=== PATIENT | female | born 2000 | race Caucasian/White ===

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

== ENCOUNTER 2022-11-09 15:45 | Outpatient (CLI) | payer BC ==
[2022-11-09 18:11] VITALS: BP 114/66; PULSE 78; RESP 16; TEMP 98.1
--- NOTE | 2022-11-14 14:22 | P.MSEPDOC ---
Presenting Problems - Arrival Data Date of Arrival on Unit: 11/09/22 Time of Arrival on Unit: 15:45 Mode of Transport: Ambulatory - Complaint OB-Reason for Admission/Chief Complaint: Decreased Movement Medical History - Information : 1 Para: 0 Term: 0 : 0 Abortions: Spontaneous or Elective: 0 Number of Living Children: 0 - Gestational Age Gestational Age by SERGO (wks/days): 27 Weeks and 5 Days Review of Systems - Review of Systems Constitutional: No problems Breast: No problems ENT: No problems Cardiovascular: No problems Respiratory: No problems Gastrointestinal: No problems Genitourinary: No problems Musculoskeletal: No problems Neurological: No problems Skin: No problems Vital Signs - Temperature Temperature: 98.1 F Temperature Source: Temporal Artery Scan - Pulse Right Pulse Rate: 78 Pulse Assessment Method: Automatic Cuff - Respirations Respiratory Rate: 16 Oxygen Delivery Method: Room Air O2 Sat by Pulse Oximetry: 98 - Blood Pressure Right Arm Sitting Blood Pressure: 114/66 Blood Pressure Mean: 82 Blood Pressure Source: Automatic Cuff Medical Screen Scoring - Assessment - Baby A Baseline FHR: 125 Heart Rate - NICHD Category: Category I (Normal) NST: Reactive Physician Notification - Physician Notified Physician Notified Date: 11/09/22 Physician Notified Time: 16:26 Physician: Sydnee Jones New Order Received: Yes (dc home with instruction) Maternal Triage Index - Stat/Priority 1 Stat Priority 1: No - Urgent/Priority 2 Urgent Priority 2: Yes Provider Notified: Sydnee Jones Provider Notified Time: 16:26 Criteria Met for Priority 2: 27.5 decreased movment - Prompt/Priority 3 Prompt Priority 3: No - Non-Urgent/Priority 4 Non-Urgent Priority 4: No Disposition - Disposition OB Disposition: Triage, Discharge to home, Written follow up instructions reviewed Discharge Date: 11/09/22 Discharge Time: 16:30 I agree with the RN Medical Screening Exam: Yes Physician's MSE Comment: I have neither seen nor examined the patient Case reviewed; plan agreed upon as documented in EMR&OBIX.: Yes Diagnosis: RELATED CONDITIONS, UNSPECIFIED, SECOND TRIMESTER
== END 2022-11-09 16:30 | disposition home or self-care (01) ==
LOC: FBPOP 15:45
PROVIDERS: ATTEND Obstetrics & Gynecology
DX: O36.8121 Decreased fetal movements, second trimester, fetus 1 (principal); Z3A.27 27 weeks gestation of pregnancy
CPT/HCPCS: 99213

== ENCOUNTER 2023-01-23 16:30 | Outpatient (CLI) | payer BC, OTHER ==
[2023-01-23 17:15] LABS: Basophils % (A) 0 %; Eosinophils # (A) 0.1 k/uL (0-0.7); Eosinophils % (A) 1 %; HCT 34.1 % (34.0-46.0); HGB 11.3 gm/dL (11.4-16.0); Hypochromasia Slight; Lymphocytes # (A) 1.6 k/uL (1.0-4.8); Lymphocytes % (A) 16 %; MCH 28.4 pg (25.0-35.0); MCHC 33.1 g/dL (31.0-37.0); MCV 85.7 fL (80.0-100.0); Mean Platelet Volume 10.1; Monocytes # (A) 0.4 k/uL (0-1.0); Monocytes % (A) 4 %; Neutrophils # (A) 7.7 k/uL (1.3-7.7); Neutrophils % (A) 77 %; Platelet Count 242 k/uL (150-450); RBC 3.98 m/uL (3.80-5.40); RDW 13.6 % (11.5-15.5)
[2023-01-23 17:31] LABS: Appearance,Urine Cloudy (Clear); Bilirubin,Urine Negative (Negative); Blood,Urine Negative (Negative); Color,Urine Yellow; Glucose,Urine (UA) Negative (Negative); Ketones,Urine Negative (Negative); Leukocyte Esterase,Urine Small (Negative); Nitrite,Urine Negative (Negative); Protein,Urine Trace (Negative); Specific Gravity,Urine 1.015 (1.001-1.035); Urobilinogen,Urine <2.0 mg/dL (<2.0)
[2023-01-23 17:35] LABS: ALT 15 U/L (4-34); AST 21 U/L (14-36); African American GFR (CKD) >90 (>60 ml/min/1.73 sqM); Blood Urea Nitrogen 9 mg/dL (7-17); Non-African American GFR(CKD) >90 (>60 ml/min/1.73 sqM); Uric Acid 6.7 mg/dL (3.7-7.4)
[2023-01-23 17:51] LABS: Bacteria,Urine Moderate /hpf; Squamous Epithelial Cell,Urine 7 /hpf (0-4); Transitional Epi Cells,Urine 2 /hpf (0-1); WBC,Urine 5 /hpf (0-5)
[2023-01-23 18:07] LABS: Creatinine,Urine Random 107.3 mg/dL; Protein/Creatinine Ratio,Urine 0.103
[2023-01-23 18:35] VITALS: BP 114/67; PULSE 82; RESP 16; TEMP 97.7
== END 2023-01-23 18:20 | disposition home or self-care (01) ==
LOC: FBPOP 16:30
PROVIDERS: ATTEND Obstetrics & Gynecology
DX: R03.0 Elevated blood-pressure reading, without diagnosis of hypertension (principal); O13.3 Gestational [pregnancy-induced] hypertension without significant proteinuria, third trimester
CPT/HCPCS: 36415; 59025; 81001; 82565; 82570; 84156; 84450; 84460; 84520; 84550; 85025

== ENCOUNTER 2023-01-25 20:45 | Inpatient (IN) | payer BC, OTHER ==
[2023-01-25] MEDS: LACTATED RINGERS 1,000 ML IV SCH (21:10)
[2023-01-25] MEDS ORDERED: miSOPROStoL 200 MCG TAB PO PRN (21:11)
[2023-01-25] MEDS ORDERED: TRANEXAMIC 1,000 MG/100ML-NACL 1,000 MG in EMPTY BAG 1 BAG IV PRN (21:11)
[2023-01-25] MEDS ORDERED: METHYLERGONOVINE 0.2 MG/ML 1 ML AMP IM PRN (21:11)
[2023-01-25] MEDS ORDERED: LIDOCAINE 0.5% (PF) 5 MG/ML (50 ML SDV) SQ PRN (21:11)
[2023-01-25] MEDS ORDERED: TERBUTALINE 1 MG/ML VIAL SQ PRN (21:11)
[2023-01-25] MEDS ORDERED: CARBOPROST TROMETHAMINE 250 MCG/ML 1 ML AMP IM PRN (21:11)
[2023-01-25] MEDS ORDERED: OXYTOCIN 10 UNIT/ML 1 ML VIAL IM PRN (21:11)
[2023-01-25] MEDS ORDERED: NALBUPHINE 10 MG/ML (10 ML MDV) IV PRN (21:13)
[2023-01-25 22:22] LABS: Basophils % (A) 0 %; Eosinophils # (A) 0.1 k/uL (0-0.7); Eosinophils % (A) 1 %; HCT 34.1 % (34.0-46.0); HGB 11.4 gm/dL (11.4-16.0); Lymphocytes # (A) 2.1 k/uL (1.0-4.8); Lymphocytes % (A) 19 %; MCH 28.1 pg (25.0-35.0); MCHC 33.4 g/dL (31.0-37.0); MCV 84.2 fL (80.0-100.0); Mean Platelet Volume 10.3; Monocytes # (A) 0.6 k/uL (0-1.0); Monocytes % (A) 6 %; Neutrophils % (A) 73 %; Platelet Count 259 k/uL (150-450); RBC 4.05 m/uL (3.80-5.40); RDW 13.4 % (11.5-15.5)
--- NOTE | 2023-01-25 22:55 | US ---
EXAM: US , Limited CLINICAL HISTORY: US Reason: position TECHNIQUE: Real-time limited ultrasound of the maternal uterus with image documentation. COMPARISON: No relevant prior studies available. FINDINGS: Fetus: There is a single intrauterine fetus in a vertex orientation. IMPRESSION: There is a single intrauterine fetus in a vertex orientation.
[2023-01-26] MEDS ORDERED: ROPIVACAINE 5 MG/ML 20 ML AMPULE ONE (01:55)
[2023-01-26] MEDS ORDERED: SODIUM CHLORIDE 0.9% 100 ML BAG ONE (01:55)
[2023-01-26] MEDS ORDERED: fentaNYL (PF) 50 MCG/ML 5 ML AMP ONE (01:55)
[2023-01-26] MEDS: LACTATED RINGERS 1,000 ML IV SCH ×5 (05:14→22:36)
[2023-01-26] MEDS: OXYTOCIN 30 UNITS/500 ML NS 30 UNIT in SALINE 1 500ML.BAG IV SCH ×2 (06:07→13:26)
--- NOTE | 2023-01-26 10:00 | P.HPOB ---
History of Present Illness H&P Date: 01/26/23 Chief Complaint: IUP at 38-5/7 weeks, spontaneous rupture of membranes. This is a 22-year-old 1 para 0 at 38-5/7 weeks, estimated due date of 02/03. Patient has been receiving routine care which has been uncomplicated by polyhydramnios. Patient has a history of anxiety and depression and has been on Zoloft. In addition patient has a history of borderline personality disorder is seen [facility]. Patient noted spontaneous rupture of membranes at 1900, clear in nature. Patient made slow progress through the night therefore Pitocin augmentation of labor was begun around 6 AM. On bloodwork this patient is a blood type of A+, rubella status immune, B surface antigen negative, HIV negative, RPR is nonreactive, group beta strep cultures negative. Review of Systems Constitutional: Denies chills, Denies fatigue, Denies fever Ears, nose, mouth and throat: Denies headache Cardiovascular: Reports leg edema Respiratory: Denies dyspnea Gastrointestinal: Denies constipation, Denies diarrhea, Denies nausea, Denies vomiting Genitourinary: Reports Past Medical History Past Medical History: No Reported History History of Any Multi-Drug Resistant Organisms: None Reported Past Surgical History: No Surgical Hx Reported Past Anesthesia/Blood Transfusion Reactions: No Reported Reaction Past Psychological History: ADD/ADHD, Anxiety, Bipolar, Depression Smoking Status: Never smoker Past Alcohol Use History: None Reported Past Drug Use History: None Reported Medications and Allergies Home Medications Medication Instructions Recorded Confirmed Type Sertraline [Zoloft] 50 mg PO DAILY 01/23/23 01/25/23 History Allergies Allergy/AdvReac Type Severity Reaction Status Date / Time No Known Allergies Allergy Verified 01/23/23 16:37 Exam Osteopathic Statement: *. No significant issues noted on an osteopathic structural exam other than those noted in the History and Physical/Consult. Vital Signs Temp Pulse Resp BP Pulse Ox 01/25/23 21:11 97.2 F L 86 16 130/90 100 01/25/23 20:58 97.2 F L 86 16 130/90 100 Intake and Output 01/25/23 01/26/23 01/26/23 22:59 06:59 14:59 Intake Total 240 Output Total 500 Balance 240 -500 Intake: Oral 240 Output: Urine 500 Other: # Voids 1 Weight 82.1 kg Targeted physical exam is performed and state in general this a well-nourished well-developed female in no acute distress, breathing is nonlabored, she is very comfortable with her epidural. Abdomen is gravid. On cervical exam per RN she is completely dilated and -1 station. heart tones returned be category 1 with an occasional variable moderate variability. She is melba every 4 minutes. Results Result Diagrams: 01/25/23 21:30 Abnormal Lab Results - Last 24 Hours (Table) 01/25/23 Range/Units 21:30 Neutrophils # 8.0 H (1.3-7.7) k/uL Assessment and Plan (1) Term Current Visit: Yes Status: Acute Code(s): Z34.90 - ENCNTR FOR SUPRVSN OF NORMAL , UNSP, UNSP TRIMESTER SNOMED Code(s): 29115107 (2) SROM (spontaneous rupture of membranes) Current Visit: Yes Status: Acute Code(s): HBD6521 - SNOMED Code(s): 169 997551 (3) Cluster B personality disorder Current Visit: No Status: Acute Priority: High Code(s): F60.89 - OTHER SPECIFIC PERSONALITY DISORDERS SNOMED Code(s): 2060258 Plan: 22-year-old 1 para 0 at 38-5/7 weeks presented to labor and delivery with complaints of spontaneous rupture of membranes. Patient is making good progress, Pitocin augmentation of labor was begun around 6 AM. Anticipate spontaneous vaginal delivery.
[2023-01-26] MEDS ORDERED: TRANEXAMIC 1,000 MG/100ML-NACL 1,000 MG in EMPTY BAG 1 BAG IV PRN (11:47)
[2023-01-26] MEDS ORDERED: METHYLERGONOVINE 0.2 MG/ML 1 ML AMP IM PRN (11:47)
[2023-01-26] MEDS ORDERED: OXYTOCIN 10 UNIT/ML 1 ML VIAL IM PRN (11:47)
[2023-01-26] MEDS ORDERED: CARBOPROST TROMETHAMINE 250 MCG/ML 1 ML AMP IM PRN (11:47)
[2023-01-26] MEDS ORDERED: miSOPROStoL 200 MCG TAB PO PRN (11:47)
[2023-01-26] MEDS ORDERED: CITRIC ACID-SODIUM CITRATE 15 ML CUP PO ONE (11:47)
[2023-01-26] MEDS ORDERED: MORPHINE SULFATE (PF) 0.3 MG/0.3 ML SYR ONE (12:07)
[2023-01-26] MEDS ORDERED: fentaNYL (PF) 50 MCG/ML 2 ML AMP ONE (12:07)
[2023-01-26] MEDS ORDERED: ONDANSETRON 4 MG/2 ML VIAL ONE (12:07)
[2023-01-26] MEDS ORDERED: OXYTOCIN 30 UNITS/500 ML NS BAG IV ONE (12:07)
[2023-01-26] MEDS ORDERED: SUCCINYLCHOLINE CHLORIDE 200 MG/10 ML VIAL IV ONE (12:07)
[2023-01-26] MEDS ORDERED: PROPOFOL 10 MG/ML 20 ML VIAL IV ONE (12:07)
[2023-01-26] MEDS ORDERED: DEXAMETHASONE SOD PHOSPHATE 4 MG/ML 1 ML VIAL ONE (12:07)
[2023-01-26] MEDS ORDERED: diphenhydrAMINE 25 MG CAP PO PRN (12:57)
[2023-01-26] MEDS ORDERED: ONDANSETRON 4 MG/2 ML VIAL IVP PRN (12:57)
[2023-01-26] MEDS ORDERED: ZOLPIDEM 5 MG TAB PO PRN (12:57)
[2023-01-26] MEDS ORDERED: SIMETHICONE 80 MG CHEWABLE PO PRN (12:57)
[2023-01-26] MEDS ORDERED: NALOXONE 0.4 MG/ML 1 ML VIAL IV PRN (12:57)
[2023-01-26] MEDS ORDERED: diphenhydrAMINE 50 MG/ML 1 ML VIAL IVP PRN ×2 (12:57)
[2023-01-26] MEDS ORDERED: diphenhydrAMINE 50 MG CAP PO PRN (12:57)
[2023-01-26] MEDS ORDERED: METOCLOPRAMIDE 5 MG/ML 2 ML VIAL IVP PRN (12:57)
[2023-01-26] MEDS ORDERED: HYDROmorphone 0.5 MG/0.5 ML SYRINGE IVP PRN (12:57)
--- NOTE | 2023-01-26 12:57 | P.OP ---
Date of Procedure: 01/26/23 Preoperative Diagnosis: IUP at 38 and 5, spontaneous rupture of membranes, arrest of descent, maternal refusal to push Postoperative Diagnosis: Same plus occiput posterior presentation Procedure(s) Performed: Primary low transverse section Anesthesia: GETA, other (failed pain control with epidural) Surgeon: Francheska Maldonado Fingerprint Clerk #1: Toni Greer Estimated Blood Loss (ml): 222 IV fluids (ml): 1,200 Urine output (ml): 250 Pathology: none sent Condition: stable Disposition: observation Indications for Procedure: 22-year-old 1 para 0 at 38-5/7 weeks that presented to [facility] and [facility] with complaints of spontaneous rupture of membranes. Patient was admitted to labor and delivery and Pitocin augmentation of labor was begun early this a.m. Patient desired epidural which was placed by the anesthesia Department without difficulty. Patient made good progress toward complete. Patient was noted to be very numb with epidural and unable to push. Patient was allowed to "labor down" for approximately 1 hour. Epidural was then discontinued after multiple attempts of trying to push, mom refused any further pushing stating "she is to painful to push" heart tones were noted to be category 2 with variable decelerations noted with contractions. Discussed with the patient heart tones, refusal to push and the need to proceed with primary C- section. Patient and mom states understanding anesthesia is notified. Operative Findings: Arcuate uterus, normal ovaries bilaterally. Viable female delivered weight of 7 lbs. 0 oz., Apgars of 9 and 9 at one and 5 minutes respectively. Description of Procedure: The patient was prepped and draped in the usual fashion. Epidural had been dosed, after testing for pain control the patient was noting significant discomfort therefore general anesthesia was obtained without difficulty by the anesthesia department. A Pfannenstiel incision was made and extended of the abdominal cavity without difficulty. The bladder peritoneum was elevated and incised and reflected distally. A 2 cm incision was made in the transverse plane of the lower uterine segment to enter the uterus at which time clear fluid was noted. The incision was extended in both directions bluntly. The head was encountered within the field and delivered up and through the incision where the nose and mouth were thoroughly suctioned. Occiput posterior presentation was noted. Remainder of the infant was delivered onto the surgical field where the cord was doubly clamped, cut, and the infant was passed for resuscitative measures with weight and Apgars as noted above. The placenta was delivered manually, intact, and was grossly normal with a grossly normal three-vessel cord. The uterus was exteriorized and the interior cavity of the uterus swept of any remaining placental and membranous fragments with a laparotomy sponge. The margins of the incision were grasped with Allis clamps and the incision closed in 2 layers. First layer was a running locking layer of 0 chromic catgut from margin to margin followed by a second layer of imbricating 0 Allis from margin to margin. Any small points of bleeding were then made hemostatic with the Bovie. Once hemostasis was achieved, the posterior cul-de-sac was suctioned with a guard and the uterine and ovarian findings are as noted above. The uterus was replaced within the abdominal cavity and the gutters swept of any remaining blood fluid or clot. The incision was again reexamined and hemostasis was noted to be excellent. Any small point of bleeding were made hemostatic with the Bovie. Once hemostasis was achieved the parietal peritoneum was loosely reapproximated. The layer of muscles were examined and made hemostatic with the Bovie. Attention was then turned to the fascia which was closed with 2 running stitches of 0 Vicryl proceeding from the lateral margins to the midpoint. The subcutaneous tissues were irrigated, made hemostatic with the Bovie, and reapproximated with a running stitch of 30 Vicryl. The skin was reapproximated with 4-0 Monocryl. Estimated blood loss for the case was approximately 222 mL. All sponge instrument and needle counts are correct. There were no complications. The patient tolerated the procedure well and proceeded to the recovery room in stable condition. Both mother and infant are resting comfortably in recovery.
[2023-01-26] MEDS ORDERED: OXYTOCIN 30 UNITS/500 ML NS 30 UNIT in SALINE 1 500ML.BAG IV SCH (13:00)
[2023-01-26] MEDS: ACETAMINOPHEN IV (For NPO) 1,000 MG in EMPTY BAG 1 BAG IVPB SCH ×2 (14:02→22:36)
[2023-01-26] MEDS: IBUPROFEN IV 800 MG in SODIUM CHLORIDE 0.9% 250 ML IV SCH ×2 (14:12→20:06)
[2023-01-26 17:08] VITALS: RESP 16
[2023-01-26] MEDS: ACETAMINOPHEN TAB 500 MG TAB PO SCH ×2 (17:29→22:34)
[2023-01-26] MEDS: IBUPROFEN 600 MG TAB PO SCH (19:45)
[2023-01-26] MEDS: SENNOSIDES-DOCUSATE SODIUM 1 EACH TAB PO SCH (20:06)
[2023-01-27] MEDS: IBUPROFEN 600 MG TAB PO SCH ×5 (01:53→22:28)
[2023-01-27] MEDS: IBUPROFEN IV 800 MG in SODIUM CHLORIDE 0.9% 250 ML IV SCH (03:49)
[2023-01-27] MEDS: LACTATED RINGERS 1,000 ML IV SCH ×3 (06:49→13:49)
[2023-01-27 07:27] LABS: Basophils % (A) 0 %; Eosinophils # (A) 0.1 k/uL (0-0.7); Eosinophils % (A) 0 %; HCT 29.2 % (34.0-46.0); Hypochromasia Slight; Lymphocytes # (A) 1.6 k/uL (1.0-4.8); Lymphocytes % (A) 11 %; MCH 27.5 pg (25.0-35.0); MCHC 32.3 g/dL (31.0-37.0); MCV 85.3 fL (80.0-100.0); Mean Platelet Volume 9.9; Monocytes % (A) 7 %; Neutrophils # (A) 11.7 k/uL (1.3-7.7); Neutrophils % (A) 80 %; Platelet Count 230 k/uL (150-450); RBC 3.42 m/uL (3.80-5.40); RDW 13.5 % (11.5-15.5); WBC 14.6 k/uL (4.0-11.0)
[2023-01-27 07:32] LABS: HGB 9.4 gm/dL (11.4-16.0)
[2023-01-27] MEDS: ACETAMINOPHEN TAB 500 MG TAB PO SCH ×4 (07:52→19:03)
[2023-01-27] MEDS: SENNOSIDES-DOCUSATE SODIUM 1 EACH TAB PO SCH ×2 (07:52→20:17)
[2023-01-27] MEDS: SERTRALINE 50 MG TAB PO SCH (09:39)
--- NOTE | 2023-01-27 09:47 | P.PNOBGPC ---
Subjective - Subjective Principal diagnosis: Postop day 1, primary Interval history: Patient continues to have pain postoperatively. She has voided spontaneously 1 and a bedpan. She has started by the bedside. Patient is receiving Motrin and Tylenol for pain. She is breast-feeding. She is tolerating clear liquids without nausea or vomiting, she declined regular diet this morning with her breakfast tray. lochia moderate Patient reports: Reports voiding normally, Reports pain poorly controlled, Reports ambulating normally [place]: doing well Objective - Vital Signs Latest vital signs: Vital Signs Temp Pulse Pulse Resp BP Pulse Ox 01/27/23 07:58 97.9 F 66 16 118/78 98 01/27/23 04:00 97.3 F L 67 16 116/77 01/27/23 00:40 97.9 F 74 16 113/65 95 01/26/23 20:20 98.2 F 70 16 128/79 96 01/26/23 16:00 99 F 71 16 141/80 97 01/26/23 15:00 99.2 F 77 16 139/82 96 01/26/23 14:30 64 16 135/82 96 01/26/23 14:00 66 16 138/79 96 01/26/23 13:45 70 144/83 97 01/26/23 13:30 65 16 140/83 96 01/26/23 13:15 71 14 132/76 96 01/26/23 13:00 96.9 F L 99 14 146/87 95 Intake and Output 01/26/23 01/27/23 01/27/23 22:59 06:59 14:59 Intake Total 300 Output Total 1817 600 Balance -1816 -300 Intake: Oral 300 Output: Urine 1775 600 Uretheral ([place]) 750 600 Output, Quantitative 42 Blood Loss Other: # Voids 0 - Exam Extremities: Present: normal, edema Abdomen: Present: normal appearance, soft Incision: Present: normal, dry, intact Uterus: Present: normal, firm - Labs Labs: Abnormal Lab Results - Last 24 Hours (Table) 01/27/23 Range/Units 06:07 WBC 14.6 H (4.0-11.0) k/uL RBC 3.42 L (3.80-5.40) m/uL Hgb 9.4 L D (11.4-16.0) gm/dL Hct 29.2 L (34.0-46.0) % Neutrophils # 11.7 H (1.3-7.7) k/uL Assessment and Plan (1) Term Current Visit: Yes Status: Acute Code(s): Z34.90 - ENCNTR FOR SUPRVSN OF NORMAL , UNSP, UNSP TRIMESTER SNOMED Code(s): 39342574 (2) SROM (spontaneous rupture of membranes) Current Visit: Yes Status: Acute Code(s): DYY0751 - SNOMED Code(s): 087819724 (3) Cluster B personality disorder Current Visit: No Status: Acute Priority: High Code(s): F60.89 - OTHER SPECIFIC PERSONALITY DISORDERS SNOMED Code(s): 1781462 (4) Arrest of descent, delivered, current hospitalization Narrative/Plan: Secondary to maternal refusal to push Current Visit: Yes Status: Acute Code(s): O62.1 - SECONDARY UTERINE INERTIA SNOMED Code(s): 21353095 (5) S/P section Current Visit: Yes Status: Acute Code(s): Z98.891 - HISTORY OF UTERINE SCAR FROM PREVIOUS SURGERY SNOMED Code(s): 095975665 (6) Occiput posterior presentation of fetus Current Visit: Yes Status: Acute Code(s): O64.0XX0 - OBSTRUCTED LABOR DUE TO INCMPL ROTATION OF HEAD, UNSP SNOMED Code(s): 28176771 Plan: 22-year-old 1 now para 1 status post primary for arrest of descent secondary to maternal refusal to push. Patient is overall doing well postoperatively. She states she is unable to ambulate significantly due to p ain. Patient has Dilaudid and Oxy IR ordered for pain. She has been offered both. She has been taking Tylenol and Motrin per her request. Discussed ambulation, she states she will try. Plan to continue routine postoperative care.
[2023-01-28] MEDS: ACETAMINOPHEN TAB 500 MG TAB PO SCH ×3 (00:32→12:15)
[2023-01-28] MEDS: IBUPROFEN 600 MG TAB PO SCH ×2 (03:58→09:32)
--- NOTE | 2023-01-28 07:22 | P.DS ---
Providers Date of admission: 01/25/23 21:02 Expected date of discharge: 01/28/23 Attending physician: Sydnee Jones MD Primary care physician: Stated None - Discharge Diagnosis(es) (1) Term Current Visit: Yes Status: Acute (2) SROM (spontaneous rupture of membranes) Current Visit: Yes Status: Acute (3) Cluster B personality disorder Current Visit: No Status: Acute Priority: High (4) Arrest of descent, delivered, current hospitalization Current Visit: Yes Status: Acute (5) S/P section Current Visit: Yes Status: Acute (6) Occiput posterior presentation of fetus Current Visit: Yes Status: Acute Hospital Course: This is a 22-year-old 1 now para 1 that presented to labor and delivery on 01/25 with complaints of spontaneous rupture of membranes. Patient had been receiving routine care. For full details on this patient please see the dictated history and physical. Patient was admitted to labor and delivery. Pitocin augmentation of labor was begun in the morning due to irregular contractions. Patient did receive an epidural during labor, per patient request. Patient did progress to complete. At that time patient began pushing irregularly. Patient initially was not feeling any pressure to push therefore was allowed to labor down for approximately 1 hour. Patient then refused to push secondary to discomfort. Patient was then counseled on after multiple attempts to encourage pushing and refusal. Patient elected primary C- section. Patient was taken back to the operative suite where primary low transverse section was completed without difficulty. Patient delivered a 5 viable female at 1221, weight of 7 lbs. 0 oz., Apgars of 9 and 9 at one and 5 minutes respectively. Patient's postoperative course has been essentially uneventful. On this postoperative day #2 she is ambulating and voiding without difficulty. She states her pain is well-controlled. She is tolerating regular diet without nausea or vomiting. She denies concerns and wishes discharge home. Patient Condition at Discharge: Good Plan - Discharge Summary New Discharge Prescriptions: No Action Sertraline [Zoloft] 50 mg PO DAILY Discharge Medication List Sertraline [Zoloft] 50 mg PO DAILY 01/23/23 [History] Follow up Appointment(s)/Referral(s): Sydnee Jones MD [STAFF PHYSICIAN] - 2 Weeks Patient Instructions/Handouts: (DC), (GEN) Activity/Diet/Wound Care/Special Instructions: No tub baths or intercourse until 6 weeks . Patient is counseled on postoperative care. Patient is to call the office and make a routine postoperative appointment in 2 weeks. Patient is counseled that she has any concerns prior to this appointment she is urged to call the office. Discharge Disposition: HOME SELF-CARE
[2023-01-28 08:32] VITALS: BP 118/75; PULSE 86; TEMP 98.6
[2023-01-28] MEDS: SERTRALINE 50 MG TAB PO SCH (09:32)
[2023-01-28] MEDS: SENNOSIDES-DOCUSATE SODIUM 1 EACH TAB PO SCH (09:32)
== END 2023-01-28 12:35 | disposition home or self-care (01) | DRG 788 ==
LOC: FBPOP 20:45 → 4FBP 21:02
PROVIDERS: ADMIT Obstetrics & Gynecology; ATTEND Obstetrics & Gynecology
PROC: 10D00Z1 Extraction of Products of Conception, Low, Open Approach (ICD-10-PCS; principal; 2023-01-26 12:18)
DX: O40.3XX0 Polyhydramnios, third trimester, not applicable or unspecified (principal); G89.18 Other acute postprocedural pain; O62.1 Secondary uterine inertia; O32.8XX0 Maternal care for other malpresentation of fetus, not applicable or unspecified; O76 Abnormality in fetal heart rate and rhythm complicating labor and delivery; O34.03 Maternal care for unspecified congenital malformation of uterus, third trimester; Q51.810 Arcuate uterus; O99.344 Other mental disorders complicating childbirth; F41.9 Anxiety disorder, unspecified; F90.9 Attention-deficit hyperactivity disorder, unspecified type; F31.9 Bipolar disorder, unspecified; F60.89 Other specific personality disorders; Z79.899 Other long term (current) drug therapy; Z28.310 Unvaccinated for COVID-19; Z3A.38 38 weeks gestation of pregnancy; Z37.0 Single live birth
CPT/HCPCS: 59025; 76815; 84112; 85025; 86850; 86900; 86901; 99213

== ENCOUNTER 2023-01-30 01:20 | Emergency (ER) | payer BC, OTHER ==
[2023-01-30 01:28] VITALS: RESP 16; TEMP 98.2
[2023-01-30] MEDS ORDERED: ACETAMINOPHEN TAB 325 MG TAB PO STA (01:49)
[2023-01-30] MEDS ORDERED: IBUPROFEN 400 MG TAB PO STA (01:49)
[2023-01-30 02:36] LABS: ALT 17 U/L (4-34); AST 22 U/L (14-36); African American GFR (CKD) >90 (>60 ml/min/1.73 sqM); Albumin 2.9 g/dL (3.5-5.0); Alkaline Phosphatase 133 U/L (38-126); Anion Gap 9 mmol/L; Blood Urea Nitrogen 8 mg/dL (7-17); Calcium 8.4 mg/dL (8.4-10.2); Carbon Dioxide 20 mmol/L (22-30); Chloride 106 mmol/L (98-107); Glucose 113 mg/dL (74-99); LDH 210 U/L (120-246); Non-African American GFR(CKD) >90 (>60 ml/min/1.73 sqM); Potassium 3.5 mmol/L (3.5-5.1); Sodium 135 mmol/L (137-145); Total Bilirubin 0.5 mg/dL (0.2-1.3); Total Protein 5.6 g/dL (6.3-8.2); Uric Acid 5.6 mg/dL (3.7-7.4)
[2023-01-30 02:45] LABS: Appearance,Urine Slightly Cloudy (Clear); Bilirubin,Urine Negative (Negative); Blood,Urine Large (Negative); Color,Urine Light Yellow; Glucose,Urine (UA) Negative (Negative); Ketones,Urine Negative (Negative); Leukocyte Esterase,Urine Large (Negative); Nitrite,Urine Negative (Negative); Protein,Urine 1+ (Negative); Specific Gravity,Urine 1.009 (1.001-1.035); Urobilinogen,Urine <2.0 mg/dL (<2.0)
[2023-01-30 02:55] LABS: Basophils % (A) 0 %; Eosinophils # (A) 0.3 k/uL (0-0.7); Eosinophils % (A) 2 %; HCT 28.3 % (34.0-46.0); HGB 9.6 gm/dL (11.4-16.0); Lymphocytes # (A) 1.4 k/uL (1.0-4.8); Lymphocytes % (A) 8 %; MCH 28.3 pg (25.0-35.0); MCV 83.3 fL (80.0-100.0); Mean Platelet Volume 8.1; Monocytes # (A) 0.9 k/uL (0-1.0); Monocytes % (A) 5 %; Neutrophils # (A) 14.1 k/uL (1.3-7.7); Neutrophils % (A) 84 %; Platelet Count 297 k/uL (150-450); RBC 3.39 m/uL (3.80-5.40); RDW 13.9 % (11.5-15.5); WBC 16.9 k/uL (4.0-11.0)
[2023-01-30 02:56] LABS: Bacteria,Urine Few /hpf; RBC,Urine 31 /hpf (0-5); Squamous Epithelial Cell,Urine 6 /hpf (0-4); WBC,Urine 49 /hpf (0-5)
[2023-01-30 02:57] LABS: Magnesium 1.7 mg/dL (1.6-2.3); Phosphorus 3.8 mg/dL (2.5-4.5)
--- NOTE | 2023-01-30 03:23 | ED ---
General Adult HPI - General Chief complaint: Recheck/Abnormal Lab/Rx Stated complaint: Sore all over Time Seen by Provider: 01/30/23 01:40 Source: patient Mode of arrival: ambulatory Limitations: no limitations - History of Present Illness Initial comments: 22-year-old female presenting with chief complaint of body aches and chills. Symptoms started yesterday. Patient had a performed on 01/26. Her SECURITY RISK ANALYST is Dr. Sutton. She states that her postoperative pain has been improving. She denies any redness or discharge from her incision. She is having regular vaginal bleeding post delivery, and has had no increase in bleeding or purulent discharge. No fevers. No nausea, vomiting, diarrhea. No chest pain or difficulty breathing. No URI like symptoms. No dysuria. - Related Data Home Medications Medication Instructions Recorded Confirmed Sertraline [Zoloft] 50 mg PO DAILY 01/23/23 01/25/23 Allergies Allergy/AdvReac Type Severity Reaction Status Date / Time No Known Allergies Allergy Verified 01/23/23 16:37 Review of Systems ROS Statement: Those systems with pertinent positive or pertinent negative responses have been documented in the HPI. ROS Other: All systems not noted in ROS Statement are negative. Past Medical History Past Medical History: No Reported History History of Any Multi-Drug Resistant Organisms: None Reported Past Surgical History: No Surgical Hx Reported Additional Past Surgical History / Comment(s): CSection 01/27/2023 Past Anesthesia/Blood Transfusion Reactions: No Reported Reaction Past Psychological History: ADD/ADHD, Anxiety, Depression Smoking Status: Never smoker Past Alcohol Use History: None Reported Past Drug Use History: None Reported General Exam Limitations: no limitations General appearance: alert, in no apparent distress Head exam: Present: atraumatic, normocephalic, normal inspection Eye exam: Present: normal appearance, EOMI ENT exam: Present: normal exam, normal oropharynx, mucous membranes moist Neck exam: Present: normal inspection, full ROM Respiratory exam: Present: normal lung sounds bilaterally. Absent: respiratory distress, wheezes, rales, rhonchi, stridor Cardiovascular Exam: Present: regular rate, normal rhythm, normal heart sounds. Absent: systolic murmur, diastolic murmur, rubs, gallop, clicks GI/Abdominal exam: Present: soft, tenderness (Lower abdominal tenderness that correlates with recent surgery, pain is not out of proportion to pressure applied). Absent: distended, guarding, rebound, rigid Extremities exam: Present: normal inspection Neurological exam: Present: alert, oriented X3, CN II-XII intact Psychiatric exam: Present: normal affect, normal mood Skin exam: Present: warm, dry, intact, normal color. Absent: rash Course Vital Signs 01/30/23 01/30/23 01/30/23 01:22 02:20 03:32 Temperature 98.2 F Pulse Rate 87 73 Respiratory 16 Rate Blood Pressure 154/93 131/84 128/80 O2 Sat by Pulse 98 Oximetry Medical Decision Making - Medical Decision Making Was pt. sent in by a medical professional or institution (, PA, ASSOCIATE PATHOLOGIST, urgent care, hospital, or fdc...) When possible be specific @ -No Did you speak to anyone other than the patient for history (EMS, parent, family, police, friend...)? What history was obtained from this source @ -No Did you review nursing and triage notes (agree or disagree)? Why? @ -I reviewed and agree with nursing and triage notes Were old charts reviewed (outside hosp., previous admission, EMS record, old EKG, old radiological studies, urgent care reports/EKG's, fdc records)? Report findings @ -No old charts were reviewed Differential Diagnosis (chest pain, altered mental status, abdominal pain women, abdominal pain men, vaginal bleeding, weakness, fever, dyspnea, syncope, headache, dizziness, GI bleed, back pain, seizure, CVA, palpatations, mental health, musculoskeletal)? @ -Differential includes endometritis, viral infection, mononucleosis, group A strep, thiis is not an all-inclusive list EKG interpreted by me (3pts min.). @ -As above X-rays interpreted by me (1pt min.). @ -None done CT interpreted by me (1pt min.). @ -None done U/S interpreted by me (1pt. min.). @ -None done What testing was considered but not performed or refused? (CT, X-rays, U/S, l abs)? Why? @ -Swabs for Covid, influenza, RSV, group A strep are ordered, however the patient refuses What meds were considered but not given or refused? Why? @ -None Did you discuss the management of the patient with other professionals (professionals i.e. , PA, ASSOCIATE PATHOLOGIST, lab, RT, psych nurse, social psychologist, public transportation inspector, teacher, equal opportunity officer, supervisor case loading)? Give summary @ -My attending spoke with Dr. Sutton regarding the patient's initial elevated blood pressure reading Was smoking cessation discussed for >3mins.? @ -No Was critical care preformed (if so, how long)? @ -No Were there social determinants of health that impacted care today? How? (Homelessness, low income, unemployed, alcoholism, drug addiction, transportation, low edu. Level, literacy, decrease access to med. care, snf, rehab)? @ -No Was there de-escalation of care discussed even if they declined (Discuss DNR or withdrawal of care, Hospice)? DNR status @ -No What co-morbidities impacted this encounter? (DM, HTN, Smoking, COPD, CAD, Cancer, CVA, ARF, Chemo, Hep., AIDS, mental health diagnosis, sleep apnea, morbid obesity)? @ -None Was patient admitted / discharged? Hospital course, mention meds given and route, prescriptions, significant lab abnormalities, going to OR and other pertinent info. @ -22-year-old female presenting with chief complaint of body aches and chills ongoing for the last day. Patient recently had a on 01/26, she denies any increasing pain, fevers, purulent discharge. Physical examination is conducted. Lab work shows WBC 16.9, patient had a previously elevated white count on 01/27. Hemoglobin of 9.6 stable from most recent value. Urine shows signs of contamination and will be sent for culture. Negative heterophile. Patient refused testing for Covid, influenza, RSV, group A strep. Initial blood pressure reading was elevated, likely due to anxiety and discomfort, repeat readings remian in normal limits. No headache or vision disturbances. Patient is educated on today's findings and on supportive management at home with Motrin and Tylenol. She is instructed to call her SECURITY RISK ANALYST tomorrow. Follow-up with PCP. Report back to ER with any new or worsening symptoms. Discussed return parameters and answered all questions. Patient conveyed verbal understanding and agreed to the plan. I discussed this case in detail with my attending Dr. Akhtar Undiagnosed new problem with uncertain prognosis? @ -No Drug Therapy requiring intensive monitoring for toxicity (Heparin, Nitro, Insulin, Cardizem)? @ -No Were any procedures done? @ -No Diagnosis/symptom? @ -Body aches Acute, or Chronic, or Acute on Chronic? @ -Acute Uncomplicated (without systemic symptoms) or Complicated (systemic symptoms)? @ -Uncomplicated Side effects of treatment? @ -No Exacerbation, Progression, or Severe Exacerbation? @ -No Poses a threat to life or bodily function? How? (Chest pain, [place], [place], pneumonia, PE, COPD, DKA, ARF, appy, cholecystitis, CVA, Diverticulitis, Homicidal, Suicidal, threat to staff... and all critical care pts) @ -No - Lab Data Result diagrams: 01/30/23 01:57 01/30/23 01:57 Lab Results 01/30/23 01/30/23 01/30/23 Range/Units 01:57 01:57 01:57 WBC 16.9 H (4.0-11.0) k/uL RBC 3.39 L (3.80-5.40) m/uL Hgb 9.6 L (11.4-16.0) gm/dL Hct 28.3 L (34.0-46.0) % MCV 83.3 (80.0-100.0) fL MCH 28.3 (25.0-35.0) pg MCHC 34.0 (31.0-37.0) g/dL RDW 13.9 (11.5-15.5) % Plt Count 297 (150-450) k/uL MPV 8.1 Neutrophils % 84 % Lymphocytes % 8 % Monocytes % 5 % Eosinophils % 2 % Basophils % 0 % Neutrophils # 14.1 H (1.3-7.7) k/uL Lymphocytes # 1.4 (1.0-4.8) k/uL Monocytes # 0.9 (0-1.0) k/uL Eosinophils # 0.3 (0-0.7) k/uL Basophils # 0.0 (0-0.2) k/uL Sodium 135 L (137-145) mmol/L Potassium 3.5 (3.5-5.1) mmol/L Chloride 106 (98-107) mmol/L Carbon Dioxide 20 L (22-30) mmol/L Anion Gap 9 mmol/L BUN 8 (7-17) mg/dL Creatinine 0.49 L (0.52-1.04) mg/dL Est GFR (CKD-EPI)AfAm >90 (>60 ml/min/1.73 sqM) Est GFR (CKD-EPI)NonAf >90 (>60 ml/min/1.73 sqM) Glucose 113 H (74-99) mg/dL Uric Acid 5.6 (3.7-7.4) mg/dL Calcium 8.4 (8.4-10.2) mg/dL Phosphorus (2.5-4.5) mg/dL Magnesium (1.6-2.3) mg/dL Total Bilirubin 0.5 (0.2-1.3) mg/dL AST 22 (14-36) U/L ALT 17 (4-34) U/L Alkaline Phosphatase 133 H (38-126) U/L Lactate Dehydrogenase 210 (120-246) U/L Total Protein 5.6 L (6.3-8.2) g/dL Albumin 2.9 L (3.5-5.0) g/dL Urine Color Light Yellow Urine Appearance Slightly Cloudy H (Clear) Urine pH 7.0 (5.0-8.0) Ur Specific [place] 1.009 (1.001-1.035) Urine Protein 1+ (Negative) Urine Glucose (UA) Negative (Negative) Urine Ketones Negative (Negative) Urine Blood Large H (Negative) Urine Nitrite Negative (Negative) Urine Bilirubin Negative (Negative) Urine Urobilinogen <2.0 (<2.0) mg/dL Ur Leukocyte Esterase Large (Negative) Urine RBC 31 H (0-5) /hpf Urine WBC 49 H (0-5) /hpf Ur Squamous Epith Cells 6 H (0-4) /hpf Urine Bacteria Few H (None) /hpf Urine Mucus NONE (None) /hpf Heterophile Antibody (Negative) 01/30/23 01/30/23 Range/Units 01:57 01:57 WBC (4.0-11.0) k/uL RBC (3.80-5.40) m/uL Hgb (11.4-16.0) gm/dL Hct (34.0-46.0) % MCV (80.0-100.0) fL MCH (25.0-35.0) pg MCHC (31.0-37.0) g/dL RDW (11.5-15.5) % Plt Count (150-450) k/uL MPV Neutrophils % % Lymphocytes % % Monocytes % % Eosinophils % % Basophils % % Neutrophils # (1.3-7.7) k/uL Lymphocytes # (1.0-4.8) k/uL Monocytes # (0-1.0) k/uL Eosinophils # (0-0.7) k/uL Basophils # (0-0.2) k/uL Sodium (137-145) mmol/L Potassium (3.5-5.1) mmol/L Chloride (98-107) mmol/L Carbon Dioxide (22-30) mmol/L Anion Gap mmol/L BUN (7-17) mg/dL Creatinine (0.52-1.04) mg/dL Est GFR (CKD-EPI)AfAm (>60 ml/min/1.73 sqM) Est GFR (CKD-EPI)NonAf (>60 ml/min/1.73 sqM) Glucose (74-99) mg/dL Uric Acid (3.7-7.4) mg/dL Calcium (8.4-10.2) mg/dL Phosphorus 3.8 (2.5-4.5) mg/dL Magnesium 1.7 (1.6-2.3) mg/dL Total Bilirubin (0.2-1.3) mg/dL AST (14-36) U/L ALT (4-34) U/L Alkaline Phosphatase (38-126) U/L Lactate Dehydrogenase (120-246) U/L Total Protein (6.3-8.2) g/dL Albumin (3.5-5.0) g/dL Urine Color Urine Appearance (Clear) Urine pH (5.0-8.0) Ur Specific [place] (1.001-1.035) Urine Protein (Negative) Urine Glucose (UA) (Negative) Urine Ketones (Negative) Urine Blood (Negative) Urine Nitrite (Negative) Urine Bilirubin (Negative) Urine Urobilinogen (<2.0) mg/dL Ur Leukocyte Esterase (Negative) Urine RBC (0-5) /hpf Urine WBC (0-5) /hpf Ur Squamous Epith Cells (0-4) /hpf Urine Bacteria (None) /hpf Urine Mucus (None) /hpf Heterophile Antibody Negative (Negative) Disposition Clinical Impression: Body aches Disposition: HOME SELF-CARE Condition: Good Instructions (If sedation given, give patient instructions): Musculoskeletal Pain (ED) Additional Instructions: Follow-up with your SECURITY RISK ANALYST. Report back to ER with any new or worsening s ymptoms. Alternate Motrin and Tylenol as needed for pain control. Is patient prescribed a controlled substance at d/c from ED?: No Referrals: Michele Mistry MD [Primary Care Provider] - 1-2 days Sydnee Jones MD [STAFF PHYSICIAN] - 1-2 days Time of Disposition: 03:21
[2023-01-30 03:33] VITALS: BP 128/80; PULSE 73
== END 2023-01-30 05:10 | disposition home or self-care (01) ==
LOC: EC 01:20
DX: M79.10 Myalgia, unspecified site (principal); F41.9 Anxiety disorder, unspecified; F32.A Depression, unspecified; F90.9 Attention-deficit hyperactivity disorder, unspecified type; Z79.899 Other long term (current) drug therapy
CPT/HCPCS: 36415; 80053; 81001; 83615; 83735; 84100; 84550; 85025; 86308; 87086; 99283

== ENCOUNTER 2024-11-24 03:31 | Emergency (ER) | payer SELFPAY ==
[2024-11-24 03:57] VITALS: RESP 19
--- NOTE | 2024-11-24 04:18 | ED ---
General Adult HPI - General Chief complaint: Alcohol Stated complaint: altered mental status Time Seen by Provider: 11/24/24 03:33 Source: patient, EMS Mode of arrival: EMS Limitations: no limitations - History of Present Illness Initial comments: This patient is a 24-year-old woman with history of previous anxiety/personality disorder who presents by EMS to have evaluation for anxiety. The patient reportedly had an argument with significant other tonight. She denies any physical injury but states she is very anxious about the argument. Patient d enies having suicidal thoughts or homicidal thoughts. Onset/Timin -: hour(s) Severity scale (1-10): 0 Consistency: constant Improves with: none Worsens with: none Associated Symptoms: denies other symptoms Treatments Prior to Arrival: none - Related Data Home Medications Medication Instructions Recorded Confirmed Sertraline [Zoloft] 50 mg PO DAILY 01/23/23 01/25/23 Allergies Allergy/AdvReac Type Severity Reaction Status Date / Time No Known Allergies Allergy Verified 01/23/23 16:37 Review of Systems ROS Statement: Those systems with pertinent positive or pertinent negative responses have been documented in the HPI. ROS Other: All systems not noted in ROS Statement are negative. Constitutional: Denies: fever Respiratory: Denies: cough, dyspnea Cardiovascular: Denies: chest pain, palpitations Gastrointestinal: Denies: abdominal pain, vomiting Genitourinary: Denies: dysuria Musculoskeletal: Denies: back pain Neurological: Denies: headache, weakness Psychiatric: Reports: anxiety. Denies: homicidal thoughts, suicidal thoughts Past Medical History Past Medical History: No Reported History History of Any Multi-Drug Resistant Organisms: None Reported Past Surgical History: No Surgical Hx Reported Additional Past Surgical History / Comment(s): CSection 01/27/2023 Past Anesthesia/Blood Transfusion Reactions: No Reported Reaction Past Psychological History: ADD/ADHD, Anxiety, Depression Smoking Status: Never smoker Past Alcohol Use History: None Reported Past Drug Use History: None Reported General Exam General appearance: alert, in no apparent distress Head exam: Present: atraumatic, normocephalic Eye exam: Present: normal appearance. Absent: scleral icterus, conjunctival injection Neck exam: Present: normal inspection Respiratory exam: Present: normal lung sounds bilaterally. Absent: respiratory distress, wheezes, rales, rhonchi, stridor Cardiovascular Exam: Present: regular rate, normal rhythm, normal heart sounds. Absent: systolic murmur, diastolic murmur, rubs, gallop GI/Abdominal exam: Present: soft. Absent: distended, tenderness, guarding, rebound, rigid, mass Extremities exam: Present: normal inspection, normal capillary refill. Absent: pedal edema, calf tenderness Back exam: Present: normal inspection. Absent: CVA tenderness (R), CVA tenderness (L) Neurological exam: Present: alert, oriented X3. Absent: motor sensory deficit Psychiatric exam: Present: anxious. Absent: depressed, agitated, homicidal ideation, suicidal ideation Skin exam: Present: warm, dry, intact, normal color. Absent: rash Course Vital Signs 11/24/24 11/24/24 03:49 04:46 Temperature 98.7 F 98.5 F Pulse Rate 121 H 105 H Respiratory 19 19 Rate Blood Pressure 145/98 144/78 O2 Sat by Pulse 99 98 Oximetry Medical Decision Making - Medical Decision Making Was pt. sent in by a medical professional or institution (, PA, STORE PLANNER, urgent care, hospital, or correction...) When possible be specific @ -[No] Did you speak to anyone other than the patient for history (EMS, parent, family, police, friend...)? What history was obtained from this source @ -[No] Did you review nursing and triage notes (agree or disagree)? Why? @ -[I reviewed and agree with nursing and triage notes] Were old charts reviewed (outside hosp., previous admission, EMS record, old EKG, old radiological studies, urgent care reports/EKG's, correction records)? Report findings @ -[No old charts were reviewed] Differential Diagnosis (chest pain, altered mental status, abdominal pain women, abdominal pain men, vaginal bleeding, weakness, fever, dyspnea, syncope, headache, dizziness, GI bleed, back pain, seizure, CVA, palpatations, mental health, musculoskeletal)? @ -[Differential Mental Health Depression, anxiety, bipolar, psychosis, schizophrenia, borderline personality, situational depression, adjustment disorder, behavioral disorder, brain tumor, malingering, substance abuse, encephalopathy, medication reaction, dementia, hypothyroidism, degenerative neurologic disorder, lupus.... This is not meant to be all-inclusive list EKG interpreted by me (3pts min.). @ -[As above] X-rays interpreted by me (1pt min.). @ -[None done] CT interpreted by me (1pt min.). @ -[None done] U/S interpreted by me (1pt. min.). @ -[None done] What testing was considered but not performed or refused? (CT, X-rays, U/S, labs)? Why? @ -[None] What meds were considered but not given or refused? Why? @ -[None] Did you discuss the management of the patient with other professionals (professionals i.e. , PA, STORE PLANNER, lab, RT, psych nurse, social contact worker, airfield defence guard, teacher, seal delivery vehicle officer, immigration case manager)? Give summary @ -[Case discussed with EPS personnel Was smoking cessation discussed for >3mins.? @ -[No] Was critical care preformed (if so, how long)? @ -[No] Were there social determinants of health that impacted care today? How? (Homelessness, low income, unemployed, alcoholism, drug addiction, transportation, low edu. Level, literacy, decrease access to med. care, custodial, rehab)? @ -[No] Was there de-escalation of care discussed even if they declined (Discuss DNR or withdrawal of care, Hospice)? DNR status @ -[No] What co-morbidities impacted this encounter? (DM, HTN, Smoking, COPD, CAD, Cancer, CVA, ARF, Chemo, Hep., AIDS, mental health diagnosis, sleep apnea, morbid obesity)? @ -[None] Was patient admitted / discharged? Hospital course, mention meds given and route, prescriptions, significant lab abnormalities, going to OR and other pertinent info. @ -[Patient is a 25-year-old woman here for suicidal ideation. Following sobriety the patient is seen by EPS and at this point stable to continue as outpatient. Undiagnosed new problem with uncertain prognosis? @ -[No] Drug Therapy requiring intensive monitoring for toxicity (Heparin, Nitro, Insulin, Cardizem)? @ -[No] Were any procedures done? @ -[No] Diagnosis/symptom? @ -[Acute alcohol intoxication Acute mood disorder Acute, or Chronic, or Acute on Chronic? @ -Acute Uncomplicated (without systemic symptoms) or Complicated (systemic symptoms)? @ -[Uncomplicated Side effects of treatment? @ -[No] Exacerbation, Progression, or Severe Exacerbation? @ -[No] Poses a threat to life or bodily function? How? (Chest pain, USA, CT, pneumonia, PE, COPD, DKA, ARF, appy, cholecystitis, CVA, Diverticulitis, Homicidal, Suicidal, threat to staff... and all critical care pts) @ -[No] All treatments are based on ideal body weight as in ED triage Disposition Clinical Impression: Alcoholic intoxication Disposition: HOME SELF-CARE Condition: Good Instructions (If sedation given, give patient instructions): Alcohol Intoxication (ED) Is patient prescribed a controlled substance at d/c from ED?: No Referrals: None,Stated [Primary Care Provider] - 1-2 days
[2024-11-24 04:55] VITALS: BP 144/78; PULSE 105; TEMP 98.5
== END 2024-11-24 04:57 | disposition home or self-care (01) ==
LOC: EC 03:31
DX: F10.129 Alcohol abuse with intoxication, unspecified (principal)
CPT/HCPCS: 82075; 99283